=== PATIENT | female | born 1965 | race Caucasian/White ===

== ENCOUNTER 2019-06-19 21:32 | Emergency (ER) | payer MEDICAID ==
[~2019-06-19] VITALS: Ht 152.4 cm; Wt 64.5 kg
[2019-06-19 21:44] VITALS: Ht 152.4 cm; Wt 64.5 kg
[2019-06-19] MEDS ORDERED: CLEOCIN HCL300 MG PO (22:25)
[2019-06-19] MEDS ORDERED: MUPIROCIN22 GM TOPICAL (22:25)
[2019-06-19 22:30] VITALS: BP 145/97
== END 2019-06-19 22:30 | disposition home or self-care (01) ==
LOC: D.ER 21:32
DX: S20.421A Blister (nonthermal) of right back wall of thorax, initial encounter (principal); X58.XXXA Exposure to other specified factors, initial encounter; Y93.89 Activity, other specified; Y92.89 Other specified places as the place of occurrence of the external cause